=== PATIENT | female | born 1980 | race Caucasian/White ===

== ENCOUNTER → 2016-03-17 | Outpatient (CLI) | payer MEDICARE, MEDICAID | END | disposition home or self-care (01) | LOC: M WUC 15:26 | PROVIDERS: ATTEND Family Medicine | DX: Z11.3 Encounter for screening for infections with a predominantly sexual mode of transmission (principal) ==

== ENCOUNTER → 2016-09-05 | Outpatient (REF) | payer MEDICARE, MEDICAID | LOC: M LAB REF 16:27 | PROVIDERS: ATTEND Physician Assistant | DX: R30.0 Dysuria (principal) ==

== ENCOUNTER → 2016-12-20 | Outpatient (CLI) | payer MEDICARE, MEDICAID ==
[2016-12-20 13:18] LABS: MEAN CORPUSCULAR HEMOGLOBIN 31.6 pg (27.0-33.0); MEAN CORPUSCULAR HGB CONC 33.3 g/dl (32.0-36.5); MEAN CORPUSCULAR VOLUME 94.9 fl (80.0-96.0); PLATELET COUNT, AUTOMATED 123 10^3/uL (150-450); RED CELL DISTRIBUTION WIDTH 13.8 % (11.5-14.5); WHITE BLOOD COUNT 5.1 10^3/uL (4.0-10.0)
[2016-12-20 13:34] LABS: VITAMIN B12 LEVEL 292 PG/ML (247-911)
[2016-12-20 13:40] LABS: ALBUMIN 3.6 GM/DL (3.2-5.2); ALBUMIN/GLOBULIN RATIO 1.13 (1.00-1.93); ALKALINE PHOSPHATASE 63 U/L (45-117); ALT/SGPT 31 U/L (12-78); ANION GAP 7 MEQ/L (8-16); AST/SGOT 20 U/L (7-37); BILIRUBIN,TOTAL 0.3 MG/DL (0.2-1.0); BLOOD UREA NITROGEN 5 MG/DL (7-18); CALCIUM LEVEL 8.5 MG/DL (8.5-10.1); CARBON DIOXIDE LEVEL 29 MEQ/L (21-32); CHLORIDE LEVEL 105 MEQ/L (98-107); CREATININE FOR GFR 0.49 MG/DL (0.55-1.02); GLOMERULAR FILTRATION RATE > 60.0 (>60); GLUCOSE, FASTING 102 MG/DL (70-105); POTASSIUM SERUM 4.3 MEQ/L (3.5-5.1); SODIUM LEVEL 141 MEQ/L (136-145); TOTAL PROTEIN 6.8 GM/DL (6.4-8.2)
== END ==
LOC: M WUC 09:35
PROVIDERS: ATTEND Family Medicine
DX: Z51.81 Encounter for therapeutic drug level monitoring (principal); Z79.899 Other long term (current) drug therapy

== ENCOUNTER → 2017-02-14 | Outpatient (CLI) | payer MEDICARE, MEDICAID ==
[2017-02-14 20:14] LABS: HEMOGLOBIN 12.3 g/dl (12.0-16.0)
[2017-02-14 20:41] LABS: ANION GAP 8 MEQ/L (8-16); BLOOD UREA NITROGEN 5 MG/DL (7-18); CALCIUM LEVEL 8.2 MG/DL (8.5-10.1); CARBON DIOXIDE LEVEL 27 MEQ/L (21-32); CHLORIDE LEVEL 104 MEQ/L (98-107); GLOMERULAR FILTRATION RATE > 60.0 (>60); GLUCOSE, FASTING 105 MG/DL (70-105); POTASSIUM SERUM 3.9 MEQ/L (3.5-5.1); SODIUM LEVEL 139 MEQ/L (136-145)
== END ==
LOC: M WUC 17:56
DX: Z01.812 Encounter for preprocedural laboratory examination (principal); G56.01 Carpal tunnel syndrome, right upper limb
CPT/HCPCS: 80048

== ENCOUNTER → 2017-03-21 | Outpatient (CLI) | payer MEDICARE, MEDICAID | LOC: M WUC 15:11 | DX: R05 Cough (principal) | CPT/HCPCS: 71046 ==

== ENCOUNTER → 2017-05-25 | Outpatient (CLI) | payer MEDICARE, MEDICAID | LOC: M RAD 11:55 | DX: Z09 Encounter for follow-up examination after completed treatment for conditions other than malignant neoplasm (principal); T19.2XXS Foreign body in vulva and vagina, sequela | CPT/HCPCS: 76856 ==

== ENCOUNTER → 2018-09-10 | Outpatient (REF) | payer MEDICARE, MEDICAID ==
[2018-09-10 18:45] LABS: APPEARANCE, URINE CLOUDY (CLEAR); BACTERIA, URINE AUTO 3+ (NEGATIVE); BILIRUBIN, URINE AUTO 1+ (NEGATIVE); BLOOD, URINE BLOOD 2+ (NEGATIVE); COLOR, URINE AMBER (YELLOW); GLUCOSE, URINE (UA) AUTO NEGATIVE (NEGATIVE); KETONE, URINE AUTO NEGATIVE (NEGATIVE); LEUKOCYTE ESTERASE, URINE AUTO 3+ (NEGATIVE); MUCUS, URINE MODERATE (NEGATIVE); NITRITE, URINE AUTO NEGATIVE (NEGATIVE); PROTEIN, URINE AUTO 2+ mg/dL (NEGATIVE); RBC, URINE AUTO 61 /HPF (0-3); SPECIFIC GRAVITY URINE AUTO 1.026 (1.002-1.035); SQUAMOUS EPITHELIAL CELL UR AU 20 /HPF (0-6); WBC, URINE AUTO TNTC /HPF (0-3)
== END ==
LOC: M LAB REF 17:20
PROVIDERS: ATTEND Physician Assistant Medical
DX: N39.0 Urinary tract infection, site not specified (principal)

== ENCOUNTER → 2019-08-23 | Outpatient (CLI) | payer MEDICARE, MEDICAID ==
[2019-08-23 17:19] LABS: HEMATOCRIT 34.1 % (36.0-47.0); HEMOGLOBIN 11.4 g/dl (12.0-15.5); MEAN CORPUSCULAR HEMOGLOBIN 30.9 pg (27.0-33.0); MEAN CORPUSCULAR HGB CONC 33.4 g/dl (32.0-36.5); MEAN CORPUSCULAR VOLUME 92.4 fl (80.0-96.0); PLATELET COUNT, AUTOMATED 153 10^3/uL (150-450); RED BLOOD COUNT 3.69 10^6/uL (4.00-5.40); WHITE BLOOD COUNT 5.4 10^3/uL (4.0-10.0)
[2019-08-23 17:46] LABS: ALBUMIN 3.4 GM/DL (3.2-5.2); ALT/SGPT 45 U/L (12-78); BILIRUBIN,DIRECT < 0.1 MG/DL (0.0-0.2); BILIRUBIN,TOTAL 0.4 MG/DL (0.2-1.0); BLOOD UREA NITROGEN 6 MG/DL (7-18); CALCIUM LEVEL 8.5 MG/DL (8.5-10.1); CARBON DIOXIDE LEVEL 28 MEQ/L (21-32); CHLORIDE LEVEL 104 MEQ/L (98-107); CREATININE FOR GFR 0.59 MG/DL (0.55-1.30); GLOMERULAR FILTRATION RATE > 60.0 (>58); GLUCOSE, FASTING 108 MG/DL (70-100); POTASSIUM SERUM 4.4 MEQ/L (3.5-5.1); SODIUM LEVEL 137 MEQ/L (136-145)
== END ==
LOC: M WUC 14:56
PROVIDERS: ATTEND Family Medicine
DX: K76.9 Liver disease, unspecified (principal)

== ENCOUNTER → 2020-01-10 | Outpatient (CLI) | payer MEDICARE, MEDICAID | LOC: M LABSMTC 12:08 | PROVIDERS: ATTEND Orthopaedic Surgery | DX: Z01.812 Encounter for preprocedural laboratory examination (principal); Z20.828 Contact with and (suspected) exposure to other viral communicable diseases ==

== ENCOUNTER → 2021-04-18 | Outpatient (CLI) | payer MEDICARE, MEDICAID | LOC: M WUC 14:22 | PROVIDERS: ATTEND Family Medicine | DX: R05.9 Cough, unspecified (principal) ==

== ENCOUNTER → 2021-12-09 | Outpatient (CLI) | payer MEDICARE, MEDICAID | LOC: M RAD 16:45 | PROVIDERS: ATTEND Physician Assistant | DX: R05.9 Cough, unspecified (principal) ==

== ENCOUNTER → 2021-12-22 | Outpatient (CLI) | payer MEDICARE, MEDICAID ==
[~2021-12-22] MED LIST: ALBU2.5V10 INH; ALBU8.5H INH; BUPR1FIL SL; CYCL-707 PO; HYDR-3363 PO; LIDO5OIN19 TOP; METH20TA29 PO; OMEP-173 PO; PROP60CA PO; VALA1TAB5 PO; [UNRECOGNIZED DRUG - CODE] PO
[2021-12-22 19:06] LABS: ALBUMIN 3.3 GM/DL (3.2-5.2); ALKALINE PHOSPHATASE 88 U/L (45-117); ALT/SGPT 21 U/L (12-78); AST/SGOT 23 U/L (7-37); BILIRUBIN,TOTAL 0.5 MG/DL (0.2-1.0); BLOOD UREA NITROGEN 3 MG/DL (7-18); CALCIUM LEVEL 8.7 MG/DL (8.5-10.1); CARBON DIOXIDE LEVEL 29 MEQ/L (21-32); CHLORIDE LEVEL 103 MEQ/L (98-107); CREATININE FOR GFR 0.69 MG/DL (0.55-1.30); GLOMERULAR FILTRATION RATE > 60.0 (>58); GLUCOSE, FASTING 116 MG/DL (70-100); POTASSIUM SERUM 4.1 MEQ/L (3.5-5.1); SODIUM LEVEL 138 MEQ/L (136-145); TOTAL PROTEIN 6.7 GM/DL (6.4-8.2)
[2021-12-22 20:05] LABS: FOLATE 3.2 NG/ML (>5.4); VITAMIN B12 LEVEL 865 PG/ML (247-911)
[2021-12-28 19:07] LABS: VITAMIN B1 LEVEL WHOLE BLOOD 100.6 nmol/L (66.5-200.0); VITAMIN B6,PYRIDOXAL PHOSPHATE 6.3 ug/L (3.4-65.2); VITAMIN E(ALPHA TOCOPHEROL) 4.7 mg/L (7.0-25.1); VITAMIN E(GAMMA TOCOPHEROL) 0.8 mg/L (0.5-5.5)
== END ==
LOC: M WUC 14:16
PROVIDERS: ATTEND Psychiatry & Neurology Neurology
DX: E53.8 Deficiency of other specified B group vitamins (principal)

== ENCOUNTER → 2021-12-22 | Outpatient (CLI) | payer MEDICARE, MEDICAID ==
[2021-12-22 16:34] LABS: BASO % 0.7 % (0.0-1.0); EOS # 0.4 10^3/uL (0.0-0.5); HEMATOCRIT 34.1 % (36.0-47.0); LYMPH # 1.2 10^3/uL (1.5-5.0); LYMPH % 28.1 % (24.0-44.0); MEAN CORPUSCULAR HEMOGLOBIN 29.5 pg (27.0-33.0); MEAN CORPUSCULAR HGB CONC 32.3 g/dl (32.0-36.5); MEAN CORPUSCULAR VOLUME 91.4 fl (80.0-96.0); MONO # 0.3 10^3/uL (0.0-0.8); MONO % 6.4 % (2.0-8.0); NEUTROPHILS # 2.3 10^3/uL (1.5-8.5); NEUTROPHILS % 55.8 % (36.0-66.0); PLATELET COUNT, AUTOMATED 150 10^3/uL (150-450); RED BLOOD COUNT 3.73 10^6/uL (4.00-5.40); WHITE BLOOD COUNT 4.1 10^3/uL (4.0-10.0)
[2021-12-22 17:53] LABS: ALBUMIN 3.4 GM/DL (3.2-5.2); ALT/SGPT 18 U/L (12-78); BILIRUBIN,TOTAL 0.4 MG/DL (0.2-1.0); BLOOD UREA NITROGEN 3 MG/DL (7-18); CALCIUM LEVEL 8.5 MG/DL (8.5-10.1); CARBON DIOXIDE LEVEL 29 MEQ/L (21-32); CHLORIDE LEVEL 103 MEQ/L (98-107); CREATININE FOR GFR 0.66 MG/DL (0.55-1.30); GLOMERULAR FILTRATION RATE > 60.0 (>58); GLUCOSE, FASTING 115 MG/DL (70-100); POTASSIUM SERUM 3.9 MEQ/L (3.5-5.1); SODIUM LEVEL 138 MEQ/L (136-145); TOTAL PROTEIN 6.6 GM/DL (6.4-8.2)
== END ==
LOC: M WUC 14:12
PROVIDERS: ATTEND Family Medicine
DX: J18.9 Pneumonia, unspecified organism (principal)

== ENCOUNTER → 2022-01-04 | Outpatient (CLI) | payer MEDICARE, MEDICAID | LOC: M PLAIMG 14:31 | PROVIDERS: ATTEND Family Medicine | DX: J18.9 Pneumonia, unspecified organism (principal); J47.9 Bronchiectasis, uncomplicated ==

== ENCOUNTER → 2022-01-23 | Outpatient (CLI) | payer MEDICARE, MEDICAID ==
[2022-01-23 14:15] LABS: INR 1.17; PROTHROMBIN TIME 15.1 SECONDS (12.5-14.5)
[2022-01-23 14:24] LABS: ALBUMIN 3.5 G/DL (3.2-5.2); BILIRUBIN,DIRECT 0.3 MG/DL (<0.4); BILIRUBIN,TOTAL 0.7 MG/DL (0.3-1.2); TOTAL PROTEIN 6.9 G/DL (5.7-8.2)
== END ==
LOC: M PLALAB 10:27
PROVIDERS: ATTEND Internal Medicine Critical Care Medicine
DX: Z01.812 Encounter for preprocedural laboratory examination (principal); Z20.822 Contact with and (suspected) exposure to COVID-19; K76.9 Liver disease, unspecified

== ENCOUNTER → 2022-01-23 | Outpatient (CLI) | payer MEDICARE, MEDICAID | LOC: M LABSMTC 10:02 | PROVIDERS: ATTEND Anesthesiology | DX: Z01.812 Encounter for preprocedural laboratory examination (principal); Z11.52 Encounter for screening for COVID-19 ==

== ENCOUNTER 2022-01-25 06:13 | Day surgery (SDC) | payer MEDICARE, MEDICAID ==
[~2022-01-25] VITALS: Ht 157.5 cm; Wt 68.9 kg
[2022-01-25] MEDS ORDERED: LIDOCAINE 1% SDV 5ML VIAL SC PRN (06:20)
[2022-01-25] MEDS ORDERED: LR 1,000 ML IV SCH ×2 (06:20→08:20)
[2022-01-25] MEDS ORDERED: LIDOCAINE PRES-FREE 2% 10ML AMP INH ONE (07:00)
[2022-01-25] MEDS ORDERED: ALBUTEROL SULFATE 2.5MG/0.5ML INH NEB SOLN INH ONE (07:05)
[2022-01-25] MEDS ORDERED: ONDANSETRON 4MG 2ML VIAL As Ordered ONE (07:19)
[2022-01-25] MEDS ORDERED: propofoL 200 MG/20 ML VIAL As Ordered ONE (07:19)
[2022-01-25] MEDS ORDERED: LIDOCAINE VISCOUS 2% SOLN 15ML UDC As Ordered ONE (07:19)
[2022-01-25] MEDS ORDERED: CETACAINE SPRAY 5GM As Ordered ONE (07:19)
[2022-01-25] MEDS ORDERED: THROMBIN 5,000 UNITS VIAL As Ordered ONE (07:19)
[2022-01-25] MEDS ORDERED: ROCURONIUM BROMIDE 50MG/5ML VIAL As Ordered ONE (07:19)
[2022-01-25] MEDS ORDERED: EPINEPHrine 1MG/10ML SYRINGE 1.5IN As Ordered ONE (07:19)
[2022-01-25] MEDS ORDERED: LIDOCAINE 2% 100MG/5ML SDV (FOR ANES.) As Ordered ONE (07:19)
[2022-01-25] MEDS ORDERED: fentaNYL 100 MCG/2 ML INJECTION As Ordered ONE (07:20)
[2022-01-25] MEDS ORDERED: MIDAZOLAM INJ 2MG/2ML VIAL As Ordered ONE (07:20)
[2022-01-25] MEDS ORDERED: LIDOCAINE 2% MDV 20ML VIAL As Ordered ONE (07:22)
[2022-01-25] MEDS ORDERED: SUGAMMADEX SODIUM 500 MG/5 ML VIAL (BRIDION) As Ordered ONE (07:52)
[2022-01-25] MEDS ORDERED: fentaNYL 100 MCG/2 ML INJECTION IV PRN (08:20)
[2022-01-25] MEDS ORDERED: PERCOCET 5MG/325MG TAB PO PRN (08:20)
[2022-01-25] MEDS ORDERED: ONDANSETRON 4MG 2ML VIAL IV PRN (08:20)
[2022-01-25 09:50] VITALS: BP 112/64
== END 2022-01-25 10:06 | disposition home or self-care (01) ==
LOC: EEVIPCON 06:13 → M SDC 06:13
PROVIDERS: ATTEND Internal Medicine Critical Care Medicine
DX: J98.11 Atelectasis (principal); J84.10 Pulmonary fibrosis, unspecified; R05.3 Chronic cough; R06.02 Shortness of breath; Z86.16 Personal history of COVID-19; Z87.01 Personal history of pneumonia (recurrent); I10 Essential (primary) hypertension; K76.9 Liver disease, unspecified; G93.2 Benign intracranial hypertension; G95.0 Syringomyelia and syringobulbia; G47.30 Sleep apnea, unspecified; Z90.49 Acquired absence of other specified parts of digestive tract; Z98.84 Bariatric surgery status; Z79.899 Other long term (current) drug therapy; F17.290 Nicotine dependence, other tobacco product, uncomplicated; Z88.8 Allergy status to other drugs, medicaments and biological substances; Z88.2 Allergy status to sulfonamides
CPT/HCPCS: 31624; 31628; 71045; 76000; 81025; 87070; 87077; 87102; 87116; 87186; 87205; 87206; 88104; 88108; 88305; 88313; J1100; J2250; J2405; J3010

== ENCOUNTER → 2022-02-14 | Outpatient (CLI) | payer MEDICARE, MEDICAID ==
[2022-02-14 16:50] LABS: BASO # 0.1 10^3/uL (0.0-0.2); BASO % 0.5 % (0.0-1.0); EOS # 0.3 10^3/uL (0.0-0.5); EOS % 3.4 % (0.0-3.0); HEMATOCRIT 37.3 % (36.0-47.0); HEMOGLOBIN 11.6 g/dl (12.0-15.5); LYMPH # 2.5 10^3/uL (1.5-5.0); LYMPH % 27.3 % (24.0-44.0); MEAN CORPUSCULAR HEMOGLOBIN 28.6 pg (27.0-33.0); MEAN CORPUSCULAR HGB CONC 31.1 g/dl (32.0-36.5); MEAN CORPUSCULAR VOLUME 91.9 fl (80.0-96.0); MONO # 0.6 10^3/uL (0.0-0.8); MONO % 6.4 % (2.0-8.0); NEUTROPHILS # 5.7 10^3/uL (1.5-8.5); NEUTROPHILS % 62.1 % (36.0-66.0); PLATELET COUNT, AUTOMATED 188 10^3/uL (150-450); RED BLOOD COUNT 4.06 10^6/uL (4.00-5.40); WHITE BLOOD COUNT 9.2 10^3/uL (4.0-10.0)
[2022-02-14 17:22] LABS: ALBUMIN 3.4 G/DL (3.2-5.2); BLOOD UREA NITROGEN < 5 MG/DL (9-23); CARBON DIOXIDE LEVEL 31 MMOL/L (20-31); CHLORIDE LEVEL 97 MMOL/L (98-107); CREATININE FOR GFR 0.58 MG/DL (0.55-1.30); GLOMERULAR FILTRATION RATE > 60.0 (>58); GLUCOSE, FASTING 89 MG/DL (60-100); PHOSPHORUS LEVEL 3.9 MG/DL (2.5-4.9); POTASSIUM SERUM 3.7 MMOL/L (3.5-5.1); SODIUM LEVEL 136 MMOL/L (136-145)
== END ==
LOC: M WUC 14:36
PROVIDERS: ATTEND Internal Medicine Critical Care Medicine
DX: A49.02 Methicillin resistant Staphylococcus aureus infection, unspecified site (principal)

== ENCOUNTER → 2022-03-23 | Outpatient (REF) | payer MEDICARE, MEDICAID | LOC: M LAB REF 17:01 | PROVIDERS: ATTEND Internal Medicine Pulmonary Disease | DX: R05.9 Cough, unspecified (principal) ==

== ENCOUNTER → 2022-05-24 | Outpatient (CLI) | payer MEDICARE, MEDICAID | LOC: M OUTALCOH 08:19 | PROVIDERS: ATTEND Psychiatry & Neurology Psychiatry | DX: Z03.89 Encounter for observation for other suspected diseases and conditions ruled out (principal) ==

== ENCOUNTER → 2022-06-07 | Outpatient (CLI) | payer MEDICARE, MEDICAID ==
[2022-06-07 16:56] LABS: ALBUMIN 3.4 G/DL (3.2-5.2); ALKALINE PHOSPHATASE 80 U/L (46-116); ALT/SGPT 37 U/L (7.0-40); AST/SGOT 44 U/L (<34); BILIRUBIN,TOTAL 0.4 MG/DL (0.3-1.2); BLOOD UREA NITROGEN 5 MG/DL (9-23); C REACTIVE PROTEIN QUANTITATIV < 0.40 MG/DL (<1.0); CALCIUM LEVEL 8.6 MG/DL (8.5-10.1); CARBON DIOXIDE LEVEL 27 MMOL/L (20-31); CHLORIDE LEVEL 105 MMOL/L (98-107); CREATININE FOR GFR 0.58 MG/DL (0.55-1.30); GLOMERULAR FILTRATION RATE > 60.0 (>58); GLUCOSE, FASTING 93 MG/DL (60-100); POTASSIUM SERUM 3.9 MMOL/L (3.5-5.1); SODIUM LEVEL 138 MMOL/L (136-145); TOTAL PROTEIN 7.4 G/DL (5.7-8.2)
[2022-06-07 16:58] LABS: IMMUNOGLOBULIN G 1747 MG/DL (650-1600); IMMUNOGLOBULIN M 48.8 MG/DL (50-300)
[2022-06-07 17:00] LABS: BASO % 0.5 % (0.0-1.0); EOS # 0.3 10^3/uL (0.0-0.5); EOS % 4.1 % (0.0-3.0); HEMATOCRIT 39.7 % (36.0-47.0); HEMOGLOBIN 12.8 g/dl (12.0-15.5); LYMPH # 2.7 10^3/uL (1.5-5.0); LYMPH % 35.6 % (24.0-44.0); MEAN CORPUSCULAR HEMOGLOBIN 30.2 pg (27.0-33.0); MEAN CORPUSCULAR HGB CONC 32.2 g/dl (32.0-36.5); MEAN CORPUSCULAR VOLUME 93.6 fl (80.0-96.0); MONO # 0.5 10^3/uL (0.0-0.8); NEUTROPHILS # 3.9 10^3/uL (1.5-8.5); NEUTROPHILS % 52.7 % (36.0-66.0); PLATELET COUNT, AUTOMATED 188 10^3/uL (150-450); RED BLOOD COUNT 4.24 10^6/uL (4.00-5.40); WHITE BLOOD COUNT 7.5 10^3/uL (4.0-10.0)
[2022-06-07 17:11] LABS: IMMUNOGLOBULIN A > 540.0 MG/DL (40-350)
[2022-06-07 17:18] LABS: ERYTHROCYTE SEDIMENTATION RATE 27 mm/hr (0-20)
[2022-06-07 17:33] LABS: IMMUNOGLOBULIN E 17.3 IU/ML (0-378)
[2022-06-12 20:07] LABS: FREE KAPPA LIGHT CHAINS SERUM 32.9 mg/L (3.3-19.4); FREE LAMBDA LIGHT CHAINS SERUM 56.6 mg/L (5.7-26.3); KAPPA/LAMBDA RATIO SERUM 0.58 (0.26-1.65)
== END ==
LOC: M WUC 13:24
PROVIDERS: ATTEND Internal Medicine Infectious Disease
DX: J15.212 Pneumonia due to Methicillin resistant Staphylococcus aureus (principal)

== ENCOUNTER → 2022-06-26 | Outpatient (CLI) | payer MEDICARE, MEDICAID | LOC: M PLAIMG 08:25 | PROVIDERS: ATTEND Internal Medicine Infectious Disease | DX: A31.0 Pulmonary mycobacterial infection (principal) ==

== ENCOUNTER → 2022-06-26 | Outpatient (CLI) | payer MEDICARE, MEDICAID | LOC: M WHC 08:22 | PROVIDERS: ATTEND Internal Medicine Infectious Disease | DX: K74.60 Unspecified cirrhosis of liver (principal) ==

== ENCOUNTER → 2022-06-28 | Outpatient (REF) | payer MEDICARE, MEDICAID | LOC: M LAB REF 18:49 | PROVIDERS: ATTEND Internal Medicine Infectious Disease | DX: A31.0 Pulmonary mycobacterial infection (principal) ==

== ENCOUNTER → 2022-07-31 | Outpatient (CLI) | payer MEDICARE, MEDICAID | LOC: M RAD 08:27 | PROVIDERS: ATTEND Internal Medicine Critical Care Medicine | DX: R91.8 Other nonspecific abnormal finding of lung field (principal) ==

== ENCOUNTER → 2022-08-21 | Outpatient (REF) | payer MEDICARE, MEDICAID | LOC: M LAB REF 12:59 | PROVIDERS: ATTEND Internal Medicine Critical Care Medicine | DX: A49.2 Hemophilus influenzae infection, unspecified site (principal) ==

== ENCOUNTER → 2022-09-27 | Outpatient (REF) | payer MEDICARE, MEDICAID ==
[2022-09-27 21:17] LABS: APPEARANCE, URINE HAZY (CLEAR); BACTERIA, URINE AUTO NEGATIVE (NEGATIVE); BILIRUBIN, URINE AUTO NEGATIVE (NEGATIVE); BLOOD, URINE BLOOD NEGATIVE (NEGATIVE); COLOR, URINE YELLOW (YELLOW); GLUCOSE, URINE (UA) AUTO NEGATIVE (NEGATIVE); GRANULAR CAST, URINE AUTO 1 /LPF; KETONE, URINE AUTO NEGATIVE (NEGATIVE); LEUKOCYTE ESTERASE, URINE AUTO NEGATIVE (NEGATIVE); MUCUS, URINE SMALL (NEGATIVE); NITRITE, URINE AUTO NEGATIVE (NEGATIVE); PROTEIN, URINE AUTO NEGATIVE (NEGATIVE); RBC, URINE AUTO 2 /HPF (0-3); SPECIFIC GRAVITY URINE AUTO 1.024 (1.002-1.035); SQUAMOUS EPITHELIAL CELL UR AU 6 /HPF (0-6); WBC, URINE AUTO 22 /HPF (0-3)
== END ==
LOC: M LAB REF 20:57
PROVIDERS: ATTEND Physician Assistant Medical
DX: N39.0 Urinary tract infection, site not specified (principal)

== ENCOUNTER → 2022-09-29 | Outpatient (REF) | payer MEDICARE, MEDICAID | LOC: M LAB REF 18:12 | PROVIDERS: ATTEND Internal Medicine Critical Care Medicine | DX: R91.8 Other nonspecific abnormal finding of lung field (principal) ==

== ENCOUNTER → 2022-10-05 | Outpatient (REF) | payer MEDICARE, MEDICAID | LOC: M LAB REF 16:07 | PROVIDERS: ATTEND Internal Medicine Critical Care Medicine | DX: R91.8 Other nonspecific abnormal finding of lung field (principal) ==

== ENCOUNTER → 2022-12-12 | Outpatient (REF) | payer MEDICARE, MEDICAID | LOC: M LABWUC 16:12 | PROVIDERS: ATTEND Family Medicine | DX: N91.2 Amenorrhea, unspecified (principal) ==

== ENCOUNTER → 2023-02-13 | Outpatient (CLI) | payer MEDICARE, MEDICAID ==
[2023-02-13 16:57] LABS: HEMATOCRIT 33.1 % (36.0-47.0); HEMOGLOBIN 10.7 g/dl (12.0-15.5); MEAN CORPUSCULAR HEMOGLOBIN 30.7 pg (27.0-33.0); MEAN CORPUSCULAR HGB CONC 32.3 g/dl (32.0-36.5); MEAN CORPUSCULAR VOLUME 94.8 fl (80.0-96.0); PLATELET COUNT, AUTOMATED 115 10^3/uL (150-450); RED BLOOD COUNT 3.49 10^6/uL (4.00-5.40); WHITE BLOOD COUNT 6.2 10^3/uL (4.0-10.0)
[2023-02-13 17:58] LABS: HIV 1&2 SCREEN NEGATIVE (NEGATIVE)
[2023-02-13 18:13] LABS: HEPATITIS C VIRUS ABY INDEX 1.99 INDEX (<0.8)
[2023-02-13 18:24] LABS: CHLAMYDIA DNA AMPLIFICATION NEGATIVE (NEGATIVE); GC DNA AMPLIFICATION NEGATIVE (NEGATIVE)
== END ==
LOC: M PLALAB 13:47
PROVIDERS: ATTEND Specialist
DX: Z34.81 Encounter for supervision of other normal pregnancy, first trimester (principal); Z11.3 Encounter for screening for infections with a predominantly sexual mode of transmission

== ENCOUNTER → 2023-02-13 | Outpatient (CLI) | payer MEDICARE, MEDICAID ==
[2023-02-15 13:08] LABS: ANTINUCLEAR ANTIBODIES DIRECT Negative (Negative)
== END ==
LOC: M PLALAB 13:49
PROVIDERS: ATTEND Family Medicine
DX: M25.50 Pain in unspecified joint (principal)

== ENCOUNTER → 2023-03-22 | Outpatient (REF) | payer MEDICARE, MEDICAID ==
[2023-03-22 13:03] LABS: TOTAL PROTEIN,RANDOM URINE 11.3 MG/DL (0.0-14.0)
[2023-03-22 13:06] LABS: CREATININE,RANDOM URINE 110.8 MG/DL
== END ==
LOC: M SFHCWAGY 09:55
PROVIDERS: ATTEND Obstetrics & Gynecology
DX: O10.919 Unspecified pre-existing hypertension complicating pregnancy, unspecified trimester (principal)

== ENCOUNTER 2023-03-24 11:35 | Emergency (ER) | payer MEDICARE, MEDICAID ==
[~2023-03-24] VITALS: Ht 157.5 cm; Wt 69.1 kg
[2023-03-24 11:38] VITALS: BP 128/80; TEMP 97.2; O2SAT 100
[2023-03-24] MEDS ORDERED: PRENTAB77 PO (11:50)
[2023-03-24] MEDS ORDERED: ASPI81CH33 PO (11:50)
[2023-03-24] MEDS: NS 500 ML IV ONE (12:20)
[2023-03-24 12:33] LABS: BASO % 0.2 % (0.0-1.0); EOS # 0.2 10^3/uL (0.0-0.5); EOS % 2.5 % (0.0-3.0); HEMATOCRIT 32.3 % (36.0-47.0); HEMOGLOBIN 10.9 g/dl (12.0-15.5); LYMPH # 1.1 10^3/uL (1.5-5.0); LYMPH % 13.4 % (24.0-44.0); MEAN CORPUSCULAR HEMOGLOBIN 31.5 pg (27.0-33.0); MEAN CORPUSCULAR HGB CONC 33.7 g/dl (32.0-36.5); MEAN CORPUSCULAR VOLUME 93.4 fl (80.0-96.0); MONO # 0.4 10^3/uL (0.0-0.8); MONO % 4.9 % (2.0-8.0); NEUTROPHILS # 6.4 10^3/uL (1.5-8.5); NEUTROPHILS % 78.8 % (36.0-66.0); PLATELET COUNT, AUTOMATED 140 10^3/uL (150-450); RED BLOOD COUNT 3.46 10^6/uL (4.00-5.40); WHITE BLOOD COUNT 8.1 10^3/uL (4.0-10.0)
[2023-03-24 13:10] LABS: BLOOD UREA NITROGEN < 5 MG/DL (9-23); CALCIUM LEVEL 8.2 MG/DL (8.5-10.1); CARBON DIOXIDE LEVEL 27 MMOL/L (20-31); CHLORIDE LEVEL 105 MMOL/L (98-107); CREATININE FOR GFR 0.38 MG/DL (0.55-1.30); GLOMERULAR FILTRATION RATE > 60.0 (>58); GLUCOSE, FASTING 106 MG/DL (60-100); POTASSIUM SERUM 3.7 MMOL/L (3.5-5.1); SODIUM LEVEL 136 MMOL/L (136-145)
[2023-03-24] MEDS: cefTRIAXone SOD 1 GM in D5W MINI-BAG PLUS 50 ML IV ONE (13:45)
[2023-03-24] MEDS ORDERED: CEFD1CAP9 PO (13:57)
== END 2023-03-24 14:16 | disposition home or self-care (01) ==
LOC: M ED 11:35
DX: N30.90 Cystitis, unspecified without hematuria (principal); Z3A.19 19 weeks gestation of pregnancy; I10 Essential (primary) hypertension; G47.33 Obstructive sleep apnea (adult) (pediatric); Z88.8 Allergy status to other drugs, medicaments and biological substances; Z88.2 Allergy status to sulfonamides; Z79.51 Long term (current) use of inhaled steroids; Z79.899 Other long term (current) drug therapy; Z79.810 Long term (current) use of selective estrogen receptor modulators (SERMs)
CPT/HCPCS: 76815; 80048; 81001; 85025; 86850; 86900; 86901; 87086; 96361; 96365; 99284; J0696

== ENCOUNTER → 2023-04-02 | Outpatient (CLI) | payer MEDICARE, MEDICAID ==
[~2023-04-02] MED LIST changes: +ASPI81CH33 PO; +CEFD1CAP9 PO; +PRENTAB77 PO
== END ==
LOC: M WHC 09:12
PROVIDERS: ATTEND Specialist
DX: Z34.82 Encounter for supervision of other normal pregnancy, second trimester (principal)

== ENCOUNTER 2023-04-21 09:36 | Inpatient (IN) | payer MEDICARE, MEDICAID ==
[~2023-04-21] VITALS: Ht 157.5 cm; Wt 72.4 kg
[2023-04-21] MEDS ORDERED: LIDOCAINE 1% MDV 20ML VIAL INFIL PRN (09:55)
[2023-04-21] MEDS ORDERED: OXYTOCIN DRIP 30 UNITS in IV 1 EA IV PRN (09:55)
[2023-04-21] MEDS ORDERED: TRANEXAMIC ACID INJection 1,000 MG in NS 100 ML IV PRN (09:55)
[2023-04-21] MEDS ORDERED: METHYLERGONOVINE MALEATE 0.2MG/ML 1ML VIAL IM PRN (09:55)
[2023-04-21] MEDS ORDERED: HOME MED LIST COMPLETE! XX SCH (10:20)
[2023-04-21 11:11] LABS: BASO % 0.5 % (0.0-1.0); EOS # 0.2 10^3/uL (0.0-0.5); EOS % 3.7 % (0.0-3.0); HEMATOCRIT 33.1 % (36.0-47.0); HEMOGLOBIN 11.1 g/dl (12.0-15.5); LYMPH # 1.4 10^3/uL (1.5-5.0); LYMPH % 24.7 % (24.0-44.0); MEAN CORPUSCULAR HEMOGLOBIN 31.4 pg (27.0-33.0); MEAN CORPUSCULAR HGB CONC 33.5 g/dl (32.0-36.5); MEAN CORPUSCULAR VOLUME 93.8 fl (80.0-96.0); MONO # 0.3 10^3/uL (0.0-0.8); MONO % 5.8 % (2.0-8.0); NEUTROPHILS # 3.7 10^3/uL (1.5-8.5); NEUTROPHILS % 65.1 % (36.0-66.0); PLATELET COUNT, AUTOMATED 141 10^3/uL (150-450); RED BLOOD COUNT 3.53 10^6/uL (4.00-5.40); WHITE BLOOD COUNT 5.7 10^3/uL (4.0-10.0)
[2023-04-21 11:46] LABS: THYROXINE (T4) 7.1 UG/DL (4.5-10.9)
[2023-04-21 11:47] LABS: THYROID STIMULATING HORMONE 0.682 uIU/ML (0.55-4.78)
[2023-04-21 12:27] VITALS: BP 135/87
[2023-04-21] MEDS: miSOPROStol 100MCG TABLET PV SCH (12:27)
[2023-04-21 13:06] VITALS: BP 125/84
[2023-04-21 15:57] VITALS: BP 114/73
[2023-04-21 18:00] VITALS: BP 149/88
[2023-04-21 19:03] VITALS: BP 137/88
[2023-04-21] MEDS: PROMETHAZINE 25MG/ML 1ML VIAL IV ONE (21:33)
[2023-04-21] MEDS: BUTORPHANOL 2 MG/ML 1ML VIAL IV ONE (21:34)
[2023-04-22] VITALS (44 sets, daily range): BP systolic 88–169; BP diastolic 50–105
[2023-04-22] MEDS ORDERED: NALOXONE INJ 0.4MG/1ML VIAL IV PRN (00:40)
[2023-04-22] MEDS ORDERED: EPIDURAL/PCA KEYS XX PRN (00:40)
[2023-04-22] MEDS ORDERED: diphenhydrAMINE 50MG/ML VIAL IV PRN (00:40)
[2023-04-22] MEDS ORDERED: LR 500 ML IV PRN (00:40)
[2023-04-22] MEDS ORDERED: ONDANSETRON 4MG 2ML VIAL IV PRN (00:40)
[2023-04-22] MEDS ORDERED: ePHEDrine SULFATE 25 MG/5 ML(5MG/ML) SYRINGE IVP PRN (00:40)
[2023-04-22] MEDS: FENTANYL/ROPIVACAINE/NACL BAG 100 ML EPIDURAL SCH (01:25)
[2023-04-22] MEDS ORDERED: PRENATAL VITAMINS CHEWABLE TABLET PO SCH (09:00)
[2023-04-22] MEDS: PROPRANOLOL 60MG LA CAP PO SCH (10:52)
[2023-04-22] MEDS ORDERED: CALCIUM CARBONATE 500 MG CHEW U/D PO PRN (10:55)
[2023-04-22] MEDS ORDERED: OXYTOCIN DRIP 30 UNITS in IV 1 EA IV SCH (10:55)
[2023-04-22] MEDS ORDERED: DIBUCAINE 1% OINTMENT 30GM TOP PRN (10:55)
[2023-04-22] MEDS ORDERED: RHOGAM 300MCG (1500IU) INJ IM SCH (10:55)
[2023-04-22] MEDS ORDERED: METHYLERGONOVINE MALEATE 0.2 MG TAB PO PRN (10:55)
[2023-04-22] MEDS ORDERED: MOM 30ML SUSPENSION UDC PO PRN (10:55)
[2023-04-22] MEDS ORDERED: DOCUSATE SODIUM 100MG CAPSULE PO PRN (10:55)
[2023-04-24] MEDS ORDERED: MEASLES,MUMPS,RUBELLA VACCINE INJ (MMR-II) SC.IMMUN ONE (09:00)
[2023-04-25 16:11] LABS: ANTI PARVO VIRUS LEVEL IGG 1.2 index (0.0-0.8); ANTI PARVO VIRUS LEVEL IgM 0.1 index (0.0-0.8); BETA-2 GLYCOPROTEIN I ABY IGA <9 (0-25); BETA-2 GLYCOPROTEIN I ABY IGG <9 (0-20); BETA-2 GLYCOPROTEIN I ABY IGM <9 (0-32); CARDIOLIPIN IGA ANTIBODY <9 APL U/mL (0-11); CARDIOLIPIN IGG ANTIBODY <9 GPL U/mL (0-14); CARDIOLIPIN IGM ANTIBODY <9 MPL U/mL (0-12)
[2023-04-26 10:06] LABS: DRVV SCREEN 36.4 SECONDS
[2023-04-26 10:12] LABS: PTT LUPUS TYPE ANTICOAG SCREEN 0.85 (0-1.20)
== END 2023-04-22 16:25 | disposition home or self-care (01) | DRG 807 ==
LOC: M LDI 09:36
PROVIDERS: ADMIT Obstetrics & Gynecology; ATTEND Obstetrics & Gynecology
PROC: 3E0P7GC Introduction of Other Therapeutic Substance into Female Reproductive, Via Natural or Artificial Opening (ICD-10-PCS; 2023-04-21)
PROC: 10E0XZZ Delivery of Products of Conception, External Approach (ICD-10-PCS; principal; 2023-04-22)
DX: O36.4XX0 Maternal care for intrauterine death, not applicable or unspecified (principal); Z37.1 Single stillbirth; Z3A.23 23 weeks gestation of pregnancy; O36.5920 Maternal care for other known or suspected poor fetal growth, second trimester, not applicable or unspecified; Z79.899 Other long term (current) drug therapy; Z88.2 Allergy status to sulfonamides; Z88.8 Allergy status to other drugs, medicaments and biological substances; Z87.891 Personal history of nicotine dependence

== ENCOUNTER → 2023-06-15 | Outpatient (CLI) | payer MEDICARE, MEDICAID ==
[2023-06-15 18:37] LABS: BASO # 0.1 10^3/uL (0.0-0.2); BASO % 0.8 % (0.0-1.0); EOS # 0.3 10^3/uL (0.0-0.5); HEMATOCRIT 36.6 % (36.0-47.0); HEMOGLOBIN 12.1 g/dl (12.0-15.5); LYMPH # 2.1 10^3/uL (1.5-5.0); LYMPH % 31.7 % (24.0-44.0); MEAN CORPUSCULAR HEMOGLOBIN 31.8 pg (27.0-33.0); MEAN CORPUSCULAR HGB CONC 33.1 g/dl (32.0-36.5); MEAN CORPUSCULAR VOLUME 96.3 fl (80.0-96.0); MONO # 0.5 10^3/uL (0.0-0.8); MONO % 7.8 % (2.0-8.0); NEUTROPHILS # 3.6 10^3/uL (1.5-8.5); NEUTROPHILS % 55.5 % (36.0-66.0); PLATELET COUNT, AUTOMATED 176 10^3/uL (150-450); WHITE BLOOD COUNT 6.5 10^3/uL (4.0-10.0)
[2023-06-15 18:54] LABS: HCG, SERUM QUANTITATIVE < 2.6 MIU/ML (<4.2)
[2023-06-15 18:55] LABS: ALBUMIN 3.4 G/DL (3.2-5.2); ALKALINE PHOSPHATASE 80 U/L (46-116); ALT/SGPT 46 U/L (7.0-40); AST/SGOT 50 U/L (<34); BILIRUBIN,TOTAL 0.9 MG/DL (0.3-1.2); BLOOD UREA NITROGEN 5 MG/DL (9-23); CALCIUM LEVEL 8.8 MG/DL (8.5-10.1); CARBON DIOXIDE LEVEL 31 MMOL/L (20-31); CHLORIDE LEVEL 104 MMOL/L (98-107); CREATININE FOR GFR 0.63 MG/DL (0.55-1.30); GLOMERULAR FILTRATION RATE > 60.0 (>58); GLUCOSE, FASTING 114 MG/DL (60-100); POTASSIUM SERUM 4.3 MMOL/L (3.5-5.1); SODIUM LEVEL 140 MMOL/L (136-145); TOTAL PROTEIN 7.1 G/DL (5.7-8.2)
[2023-06-15 18:58] LABS: THYROID STIMULATING HORMONE 2.121 uIU/ML (0.55-4.78)
== END ==
LOC: M WUC 15:31
PROVIDERS: ATTEND Family Medicine
DX: Z79.899 Other long term (current) drug therapy (principal)

== ENCOUNTER → 2023-08-08 | Outpatient (CLI) | payer MEDICARE, MEDICAID | LOC: M WUC 13:52 | PROVIDERS: ATTEND Family Medicine | DX: R68.84 Jaw pain (principal) ==

== ENCOUNTER → 2023-09-17 | Outpatient (CLI) | payer MEDICARE, MEDICAID ==
[2023-09-17 19:00] LABS: FREE T4 0.83 NG/DL (0.89-1.76)
[2023-09-17 19:01] LABS: THYROID STIMULATING HORMONE 0.848 uIU/ML (0.55-4.78)
== END ==
LOC: M PLALAB 16:29
PROVIDERS: ATTEND Obstetrics & Gynecology
DX: Z12.4 Encounter for screening for malignant neoplasm of cervix (principal); Z79.899 Other long term (current) drug therapy

== ENCOUNTER → 2023-11-12 | Outpatient (CLI) | payer MEDICARE, MEDICAID ==
[~2023-11-12] MED LIST changes: +E-Z-GAS II EFFERVESCENT PACKET (SODIUM BICARB./CITRIC ACID/SIMETHICONE) As Ordered ONE; +E-Z-HD 98% w/w 340GM SUSP BTL As Ordered ONE; +E-Z-PAQUE 96% w/w SUSP 176GM BTL As Ordered ONE
[2023-11-12 12:34] LABS: FREE T4 0.91 NG/DL (0.89-1.76)
[2023-11-12 12:35] LABS: THYROID STIMULATING HORMONE 1.774 uIU/ML (0.55-4.78)
== END ==
LOC: M RAD 08:02
PROVIDERS: ATTEND Family Medicine
DX: E07.9 Disorder of thyroid, unspecified (principal)

== ENCOUNTER → 2023-11-20 | Outpatient (CLI) | payer MEDICARE, MEDICAID ==
[~2023-11-20] MED LIST changes: -E-Z-GAS II EFFERVESCENT PACKET (SODIUM BICARB./CITRIC ACID/SIMETHICONE) As Ordered ONE; -E-Z-HD 98% w/w 340GM SUSP BTL As Ordered ONE; -E-Z-PAQUE 96% w/w SUSP 176GM BTL As Ordered ONE
== END ==
LOC: M WUC 08:35
PROVIDERS: ATTEND Family Medicine
DX: R63.5 Abnormal weight gain (principal)

== ENCOUNTER 2023-12-14 14:16 | Emergency (ER) | payer MEDICARE, MEDICAID ==
[~2023-12-14] VITALS: Ht 157.5 cm; Wt 89.5 kg
[2023-12-14] MEDS ORDERED: NAPR-837 PO (18:14)
[2023-12-14 18:18] VITALS: BP 127/71; TEMP 97.5; O2SAT 96
== END 2023-12-14 18:19 | disposition home or self-care (01) ==
LOC: M ED 14:16
DX: M71.22 Synovial cyst of popliteal space [Baker], left knee (principal); R22.42 Localized swelling, mass and lump, left lower limb; I10 Essential (primary) hypertension; Z88.2 Allergy status to sulfonamides; Z88.8 Allergy status to other drugs, medicaments and biological substances; Z79.899 Other long term (current) drug therapy

== ENCOUNTER → 2024-02-22 | Outpatient (REF) | payer MEDICARE, MEDICAID ==
[~2024-02-22] MED LIST changes: +NAPR-837 PO
== END ==
LOC: M LAB REF 11:42
PROVIDERS: ATTEND Family Medicine
DX: R19.4 Change in bowel habit (principal)

== ENCOUNTER → 2024-04-11 | Outpatient (CLI) | payer MEDICARE, MEDICAID | LOC: M WUC 14:56 | PROVIDERS: ATTEND Physician Assistant | DX: S92.491A Other fracture of right great toe, initial encounter for closed fracture (principal); W18.30XA Fall on same level, unspecified, initial encounter; Y92.009 Unspecified place in unspecified non-institutional (private) residence as the place of occurrence of the external cause ==

== ENCOUNTER → 2024-09-17 | Outpatient (CLI) | payer MEDICARE, MEDICAID | LOC: M WHC 12:47 | PROVIDERS: ATTEND Family Medicine | DX: Z12.31 Encounter for screening mammogram for malignant neoplasm of breast (principal); R92.323 Mammographic fibroglandular density, bilateral breasts ==

== ENCOUNTER → 2024-11-04 | Outpatient (CLI) | payer MEDICARE, MEDICAID ==
[2024-11-04 20:15] LABS: CREATININE FOR GFR 0.65 MG/DL (0.55-1.30); GLOMERULAR FILTRATION RATE > 90.0 (>58)
== END ==
LOC: M WUC 14:36
PROVIDERS: ATTEND Psychiatry & Neurology Neurology
DX: I10 Essential (primary) hypertension (principal)

== ENCOUNTER 2024-11-20 07:56 | Inpatient (IN) | payer OTHER, MEDICARE, MEDICAID ==
[2024-11-20] VITALS (12 sets, daily range): BP systolic 92–115; BP diastolic 50–67; TEMP 97.6–98; O2SAT 93–97
[~2024-11-20] VITALS: Ht 160 cm; Wt 92.3 kg
[2024-11-20 08:24] LABS: VENOUS BASE EXCESS -0.7 (-2.0-2.0); VENOUS HCO3 26.7 MMOL/L (23.0-27.0); VENOUS O2 SATURATION 43.9 % (60.0-80.0); VENOUS PARTIAL PRESSURE CO2 56.1 mmHg (38.0-50.0); VENOUS PARTIAL PRESSURE O2 27.2 mmHg (30.0-50.0); VENOUS PH 7.296 UNITS (7.330-7.430); VENOUS STANDARD HCO3 22.6 MMOL/L; VENOUS TOTAL CO2 28.5 MMOL/L (24.0-28.0)
[2024-11-20] MEDS ORDERED: ISOVUE-370 76% 100 ML VIAL As Ordered ONE (08:24)
[2024-11-20] MEDS: ACETAMINOPHEN *IV* 1,000 MG in IV 1 EA IV ONE (08:26)
[2024-11-20 08:30] LABS: BASO # 0.1 10^3/uL (0.0-0.2); BASO % 0.7 % (0.0-1.0); EOS # 0.4 10^3/uL (0.0-0.5); EOS % 5.2 % (0.0-3.0); LYMPH # 1.2 10^3/uL (1.5-5.0); LYMPH % 16.8 % (24.0-44.0); MONO # 0.4 10^3/uL (0.0-0.8); MONO % 4.9 % (2.0-8.0); NEUTROPHILS # 5.1 10^3/uL (1.5-8.5); NEUTROPHILS % 71.4 % (36.0-66.0); PLATELET COUNT, AUTOMATED 165 10^3/uL (150-450)
[2024-11-20 08:44] LABS: INR 1.27
[2024-11-20 08:59] LABS: CK-MB VALUE MASS 3.2 NG/ML (<3.6)
[2024-11-20 09:00] LABS: ETHYL ALCOHOL (ETHANOL) < 0.003 % (0.000-0.010)
[2024-11-20] MEDS: MIRALAX *UNIT DOSE* 17 GM PACKET PO SCH (09:00)
[2024-11-20] MEDS: SENNOSIDES/DOCUSATE SODIUM 8.6 MG/50MG TAB PO SCH (09:00)
[2024-11-20 09:02] LABS: ALT/SGPT 32 U/L (7.0-40); AST/SGOT 55 U/L (<34); CALCIUM LEVEL 8.9 MG/DL (8.5-10.1); CARBON DIOXIDE LEVEL 31 MMOL/L (20-31); CHLORIDE LEVEL 101 MMOL/L (98-107); CREATININE FOR GFR 0.74 MG/DL (0.55-1.30); GLOMERULAR FILTRATION RATE > 90.0 (>58); POTASSIUM SERUM 5.0 MMOL/L (3.5-5.1); SODIUM LEVEL 140 MMOL/L (136-145)
[2024-11-20 09:03] LABS: CPK CREATINE PHOSPHOKINASE 118 U/L (34-145); MB/CK RELATIVE INDEX 2.71 (< OR =4)
[2024-11-20] MEDS: cefTRIAXone SOD 1 GM in DEXTROSE 5% (D5W) ADV/MINI-BAG 50 ML IV ONE (09:13)
[2024-11-20] MEDS: KETOROLAC 30 MG/ML 1 ML VIAL IV ONE (09:22)
[2024-11-20 09:40] LABS: ABG BASE EXCESS 0.2 (-2.0-2.0); ABG HCO3 25.7 MMOL/L (22.0-26.0); ABG O2 SATURATION 92.5 % (95.0-99.0); ABG PARTIAL PRESSURE CO2 44.8 mmHg (35.0-45.0); ABG PARTIAL PRESSURE O2 67.0 mmHg (75.0-100.0); ABG STANDARD HCO3 24.5 MMOL/L. (22.0-26.0); ABG TOTAL CO2 27.0 MMOL/L (22.0-29.0); ABG pH (ARTERIAL) 7.376 UNITS (7.350-7.450)
[2024-11-20 10:04] LABS: CK-MB VALUE MASS 2.9 NG/ML (<3.6)
[2024-11-20 10:08] LABS: CPK CREATINE PHOSPHOKINASE 132.0 U/L (34-145); MB/CK RELATIVE INDEX 2.19 (< OR =4)
[2024-11-20] MEDS ORDERED: METH20TA29 PO (10:35)
[2024-11-20] MEDS ORDERED: METF-838 PO (10:35)
[2024-11-20] MEDS ORDERED: HOME MED LIST COMPLETE! XX SCH (10:35)
[2024-11-20] MEDS ORDERED: [UNRECOGNIZED DRUG - CODE] PO (10:35)
[2024-11-20] MEDS ORDERED: GLUCAGON INJ 1 MG VIAL SC PRN (11:00)
[2024-11-20] MEDS ORDERED: DEXTROSE 50% 50 ML SYRINGE IV PRN (11:00)
[2024-11-20] MEDS ORDERED: GLUCOSE 4 GM CHEW PO PRN (11:00)
[2024-11-20] MEDS: INSULIN LISPRO (NovoLOG) PER UNIT SC SCH ×2 (12:00→20:25)
[2024-11-20 12:50] LABS: PLATELET COUNT, AUTOMATED 136 10^3/uL (150-450)
[2024-11-20 12:58] LABS: APPEARANCE, URINE CLEAR (CLEAR); BACTERIA, URINE AUTO 1+ (NEGATIVE); BILIRUBIN, URINE AUTO NEGATIVE (NEGATIVE); BLOOD, URINE BLOOD 1+ (NEGATIVE); GLUCOSE, URINE (UA) AUTO NEGATIVE (NEGATIVE); KETONE, URINE AUTO NEGATIVE (NEGATIVE); LEUKOCYTE ESTERASE, URINE AUTO NEGATIVE (NEGATIVE); MUCUS, URINE SMALL (NEGATIVE); NITRITE, URINE AUTO NEGATIVE (NEGATIVE); PROTEIN, URINE AUTO 2+ mg/dL (NEGATIVE); RBC, URINE AUTO 1 /HPF (0-3); SPECIFIC GRAVITY URINE AUTO 1.042 (1.002-1.035); SQUAMOUS EPITHELIAL CELL UR AU 2 /HPF (0-6); UROBILINOGEN, URINE AUTO 2.0 mg/dL (0.0-2.0); WBC, URINE AUTO 4 /HPF (0-3)
[2024-11-20 13:24] LABS: AMPHETAMINES LEVEL URINE NEGATIVE (NEGATIVE); BARBITURATES URINE NEGATIVE (NEGATIVE); BENZODIAZEPINES URINE NEGATIVE (NEGATIVE); COCAINE METABOLITE URINE NEGATIVE (NEGATIVE); METHADONE URINE NEGATIVE (NEGATIVE); OPIATES URINE NEGATIVE (NEGATIVE); PHENCYCLIDINE URINE NEGATIVE (NEGATIVE)
[2024-11-20 13:26] LABS: CANNABINOIDS URINE POSITIVE (NEGATIVE)
[2024-11-20] MEDS: BUPRENORPHINE/NALOXONE 8-2MG SUBLINGUAL TABLET(SUBOXONE) SL SCH (13:31)
[2024-11-20] MEDS: DOXYCYCLINE HYCLATE 100 MG TABLET PO SCH (13:31)
[2024-11-20] MEDS: METHOCARBAMOL 1,000 MG/10 ML VIAL IV ONE (13:37)
[2024-11-20] MEDS: LIDOCAINE 5% PATCH TD SCH (13:37)
[2024-11-20] MEDS: ALBUTEROL SULFATE 2.5 MG/0.5 ML INH CONCENTRATE NEB SOLN NEB SCH (14:00)
[2024-11-20] MEDS: TRANEXAMIC ACID 100 MG/ML 10ML VIAL NEB SCH (14:00)
[2024-11-20] MEDS ORDERED: KETOROLAC 30 MG/ML 1 ML VIAL IV SCH (15:00)
[2024-11-20] MEDS: ACETAMINOPHEN *IV* 1,000 MG in IV 1 EA IV SCH (15:51)
[2024-11-20] MEDS: KETOROLAC 30 MG/ML 1 ML VIAL IV SCH (15:51)
[2024-11-21] VITALS (40 sets, daily range): BP systolic 76–135; BP diastolic 42–77; TEMP 97–97.5; O2SAT 91–98
[2024-11-21] MEDS: LR 1,000 ML IV ONE (01:45)
[2024-11-21 06:01] LABS: BASO # 0.0 10^3/uL (0.0-0.2); BASO % 0.4 % (0.0-1.0); EOS # 0.2 10^3/uL (0.0-0.5); EOS % 4.0 % (0.0-3.0); LYMPH # 1.7 10^3/uL (1.5-5.0); LYMPH % 31.6 % (24.0-44.0); MONO # 0.5 10^3/uL (0.0-0.8); MONO % 8.7 % (2.0-8.0); NEUTROPHILS # 2.9 10^3/uL (1.5-8.5); NEUTROPHILS % 55.1 % (36.0-66.0); PLATELET COUNT, AUTOMATED 110 10^3/uL (150-450)
[2024-11-21 06:31] LABS: CALCIUM LEVEL 8.2 MG/DL (8.5-10.1); CARBON DIOXIDE LEVEL 29 MMOL/L (20-31); CHLORIDE LEVEL 103 MMOL/L (98-107); CREATININE FOR GFR 0.77 MG/DL (0.55-1.30); GLOMERULAR FILTRATION RATE > 90.0 (>58); POTASSIUM SERUM 4.1 MMOL/L (3.5-5.1); SODIUM LEVEL 140 MMOL/L (136-145)
[2024-11-21] MEDS: cefTRIAXone SOD 2 GM in DEXTROSE 5% (D5W) ADV/MINI-BAG 50 ML IV SCH (08:50)
[2024-11-21] MEDS: LIDOCAINE 5% PATCH TD ONE (16:57)
[2024-11-22] VITALS (31 sets, daily range): BP systolic 119–157; BP diastolic 57–86; TEMP 96.9–97.7; O2SAT 91–99
[2024-11-22 06:15] LABS: BASO # 0.0 10^3/uL (0.0-0.2); BASO % 0.5 % (0.0-1.0); EOS # 0.1 10^3/uL (0.0-0.5); EOS % 3.2 % (0.0-3.0); LYMPH # 1.0 10^3/uL (1.5-5.0); LYMPH % 24.0 % (24.0-44.0); MONO # 0.3 10^3/uL (0.0-0.8); MONO % 6.8 % (2.0-8.0); NEUTROPHILS # 2.7 10^3/uL (1.5-8.5); NEUTROPHILS % 65.0 % (36.0-66.0)
[2024-11-22 06:33] LABS: CALCIUM LEVEL 8.1 MG/DL (8.5-10.1); CARBON DIOXIDE LEVEL 27 MMOL/L (20-31); CHLORIDE LEVEL 105 MMOL/L (98-107); CREATININE FOR GFR 0.68 MG/DL (0.55-1.30); GLOMERULAR FILTRATION RATE > 90.0 (>58); POTASSIUM SERUM 4.0 MMOL/L (3.5-5.1); SODIUM LEVEL 142 MMOL/L (136-145)
[2024-11-22 06:37] LABS: PLATELET COUNT, AUTOMATED 93 10^3/uL (150-450)
[2024-11-22] MEDS ORDERED: IBUPROFEN 800 MG TAB PO PRN (07:30)
[2024-11-22] MEDS ORDERED: LIDOCAINE 5% PATCH TD SCH (09:00)
[2024-11-22] MEDS: ACETAMINOPHEN 500 MG TAB PO SCH (09:12)
[2024-11-22] MEDS: LIDOCAINE 5% PATCH TD SCH (09:15)
[2024-11-22] MEDS ORDERED: KETOROLAC 30 MG/ML 1 ML VIAL IV SCH ×2 (10:00)
[2024-11-22] MEDS: KETOROLAC 30 MG/ML 1 ML VIAL IV PRN (10:06)
[2024-11-22] MEDS ORDERED: BISACODYL 10 MG SUPP PR PRN (10:55)
[2024-11-22] MEDS ORDERED: ONDANSETRON 4MG 2ML VIAL IV PRN (10:55)
[2024-11-22] MEDS ORDERED: LEVALBUTEROL 1.25 MG 0.5ML CONCENTRATE NEB NEB PRN (10:55)
[2024-11-22] MEDS: LEVALBUTEROL 1.25 MG 0.5ML CONCENTRATE NEB NEB SCH (14:39)
[2024-11-22] MEDS: KETOROLAC 30 MG/ML 1 ML VIAL IV SCH (15:12)
[2024-11-22] MEDS: ACETAMINOPHEN *IV* 1,000 MG in IV 1 EA IV SCH (18:05)
[2024-11-22] MEDS: HYDROMORPHONE HCL 0.5 MG/0.5 ML SYRINGE IV PRN (19:59)
[2024-11-22] MEDS ORDERED: NALOXONE INJ 0.4 MG/1 ML VIAL IV PRN (20:00)
[2024-11-22] MEDS: DOCUSATE SODIUM 100 MG CAPSULE PO SCH (21:30)
[2024-11-22] MEDS: HEPARIN SOD 5000 UNITS/ML 1 ML VIAL/SYRINGE SC SCH (21:31)
[2024-11-23] VITALS (33 sets, daily range): BP systolic 116–153; BP diastolic 67–79; TEMP 96.9–98.6; O2SAT 92–99
[2024-11-23 07:45] LABS: BASO # 0.0 10^3/uL (0.0-0.2); BASO % 0.5 % (0.0-1.0); EOS # 0.2 10^3/uL (0.0-0.5); EOS % 3.9 % (0.0-3.0); LYMPH # 1.0 10^3/uL (1.5-5.0); LYMPH % 24.3 % (24.0-44.0); MONO # 0.2 10^3/uL (0.0-0.8); MONO % 5.4 % (2.0-8.0); NEUTROPHILS # 2.7 10^3/uL (1.5-8.5); NEUTROPHILS % 65.7 % (36.0-66.0)
[2024-11-23 07:46] LABS: PLATELET COUNT, AUTOMATED 99 10^3/uL (150-450)
[2024-11-23 08:10] LABS: CALCIUM LEVEL 8.3 MG/DL (8.5-10.1); CARBON DIOXIDE LEVEL 28 MMOL/L (20-31); CHLORIDE LEVEL 105 MMOL/L (98-107); CREATININE FOR GFR 0.65 MG/DL (0.55-1.30); GLOMERULAR FILTRATION RATE > 90.0 (>58); POTASSIUM SERUM 4.2 MMOL/L (3.5-5.1); SODIUM LEVEL 141 MMOL/L (136-145)
[2024-11-23] MEDS: MOM 30 ML SUSPENSION UDC PO SCH (09:00)
[2024-11-23] MEDS: PANTOPRAZOLE 40MG TAB PO SCH (10:30)
[2024-11-23] MEDS: CEFPODOXIME PROXETIL 200 MG TABLET PO SCH (22:03)
[2024-11-24] VITALS (16 sets, daily range): BP systolic 121–130; BP diastolic 70–75; TEMP 97–98.2; O2SAT 92–98
[2024-11-24 04:07] LABS: BASO # 0.0 10^3/uL (0.0-0.2); BASO % 0.3 % (0.0-1.0); EOS # 0.2 10^3/uL (0.0-0.5); EOS % 4.2 % (0.0-3.0); LYMPH # 1.5 10^3/uL (1.5-5.0); LYMPH % 25.7 % (24.0-44.0); MONO # 0.4 10^3/uL (0.0-0.8); MONO % 6.1 % (2.0-8.0); NEUTROPHILS # 3.6 10^3/uL (1.5-8.5); NEUTROPHILS % 63.5 % (36.0-66.0); PLATELET COUNT, AUTOMATED 119 10^3/uL (150-450)
[2024-11-24 04:34] LABS: CALCIUM LEVEL 8.6 MG/DL (8.5-10.1); CARBON DIOXIDE LEVEL 28 MMOL/L (20-31); CHLORIDE LEVEL 103 MMOL/L (98-107); CREATININE FOR GFR 0.63 MG/DL (0.55-1.30); GLOMERULAR FILTRATION RATE > 90.0 (>58); POTASSIUM SERUM 4.0 MMOL/L (3.5-5.1); SODIUM LEVEL 139 MMOL/L (136-145)
[2024-11-24] MEDS ORDERED: ACET-897 PO (11:06)
[2024-11-24] MEDS ORDERED: IBUP600T42 PO (11:06)
[2024-11-24] MEDS ORDERED: PANT40TA29 PO (11:06)
[2024-11-24] MEDS ORDERED: CEFP200T PO (11:06)
[2024-11-24] MEDS ORDERED: DOXY100T PO (11:06)
[2024-11-24] MEDS ORDERED: OXYC-517 PO (11:10)
== END 2024-11-24 13:46 | disposition home or self-care (01) | DRG 135 ==
LOC: M ED 07:56 → EDBD 07:56 → EEVIPCON 11:00 → M ED INP 11:00 → M PCU 15:13
PROVIDERS: ADMIT Internal Medicine Nephrology; ATTEND Internal Medicine Nephrology
DX: S27.322A Contusion of lung, bilateral, initial encounter (principal); J18.9 Pneumonia, unspecified organism; K76.6 Portal hypertension; D69.6 Thrombocytopenia, unspecified; S22.42XA Multiple fractures of ribs, left side, initial encounter for closed fracture; J90 Pleural effusion, not elsewhere classified; K74.60 Unspecified cirrhosis of liver; S27.0XXA Traumatic pneumothorax, initial encounter; R04.2 Hemoptysis; K75.81 Nonalcoholic steatohepatitis (NASH); G47.33 Obstructive sleep apnea (adult) (pediatric); E66.9 Obesity, unspecified; I10 Essential (primary) hypertension; Z68.36 Body mass index [BMI] 36.0-36.9, adult; Z90.49 Acquired absence of other specified parts of digestive tract; Z98.84 Bariatric surgery status; Z79.84 Long term (current) use of oral hypoglycemic drugs; Z79.899 Other long term (current) drug therapy; Z88.2 Allergy status to sulfonamides; Z88.8 Allergy status to other drugs, medicaments and biological substances; V47.5XXA Car driver injured in collision with fixed or stationary object in traffic accident, initial encounter; Y92.410 Unspecified street and highway as the place of occurrence of the external cause; Y93.89 Activity, other specified; Y99.8 Other external cause status